=== PATIENT | male | born 1970 | race Caucasian/White ===

== ENCOUNTER 2018-02-25 20:19 | Emergency (ER) | payer BC ==
[2018-02-25] MEDS ORDERED: NA CHLORIDE 0.9% 1,000 ML ONE ×2 (20:50→22:38)
[2018-02-25] MEDS ORDERED: ONDANSETRON 4 MG/2 ML VIAL ONE (20:50)
[2018-02-25 21:21] LABS: Absolute Lymphocytes (CBC) 0.6 K/uL (0.7-4.9); Absolute Monocytes 0.9 K/uL (0.1-1.3); Absolute Neutrophil 11.2 K/uL (1.8-8.0); Basophils % 0.2 % (0-1.3); Hematocrit 45.1 % (39.6-49.0); Lymphocytes % 4.8 % (15.3-44.8); MCH 31.2 pg (27.0-35.0); MCV 89.5 fL (80-100); MPV 9.3 fL (7.6-11.3); Monocytes % 7.2 % (3.3-12.3); RBC Red Blood Cell Count 5.04 M/uL (4.33-5.43)
[2018-02-25 22:03] LABS: Bilirubin Direct 0.2 mg/dL (0-0.2); Bilirubin Total 1.4 mg/dL (0.2-1.0); Potassium 3.9 mmol/L (3.5-5.1); Protein, Total 7.6 g/dL (6.4-8.2)
[2018-02-25] MEDS ORDERED: LORazepam 2 MG/ML VIAL ONE (22:38)
--- NOTE | 2018-02-25 23:33 | ER ---
Nurse's Notes [facility] Name: Augustin Huang Age: 47 yrs Sex: Male : 1970 Arrival Date: 02/25/2018 Time: 20:22 Bed 26 Private MD: Deo Ferrell B Diagnosis: Nausea with vomiting, unspecified;Diarrhea, unspecified Presentation: 02/25 20:32 Presenting complaint: Patient states: Vomiting for 24 hours, unable to tolerate la1 anything by mouth. Transition of care: patient was not received from another setting of care. Onset of symptoms was February 25, 2018. Risk Assessment: Do you want to hurt yourself or someone else? Patient reports no desire to harm self or others. Initial Sepsis Screen: Does the patient meet any 2 criteria? No. Patient's initial sepsis screen is negative. Does the patient have a suspected source of infection? No. Patient's initial sepsis screen is negative. Care prior to arrival: None. 20:32 Method Of Arrival: Ambulatory la1 20:32 Acuity: VENECIA 3 la1 Historical: - Allergies: 20:33 PENICILLINS; la1 - Home Meds: 23:17 losartan Oral [Active]; uric [Active]; mg2 - PMHx: 20:33 Gout; Hypertension; la1 - PSHx: 23:17 None; mg2 - Immunization history:: Adult Immunizations up to date. - Social history:: Smoking status: Patient/guardian denies using tobacco. - Ebola Screening: : No symptoms or risks identified at this time. Screenin:11 Abuse screen: Denies threats or abuse. Denies injuries from another. Nutritional mg2 screening: No deficits noted. Tuberculosis screening: No symptoms or risk factors identified. Fall Risk IV access (20 points). Assessment: 23:10 General: Appears in no apparent distress. uncomfortable, Behavior is calm, cooperative. mg2 Pain: Denies pain. Neuro: Level of Consciousness is awake, alert, obeys commands, Oriented to person, place, time, situation. Cardiovascular: Capillary refill < 3 seconds Patient's skin is warm and dry. Respiratory: Airway is patent Respiratory effort is even, unlabored, Respiratory pattern is regular, symmetrical. GI: Abdomen is flat, non-distended, Reports nausea, vomiting. : No signs and/or symptoms were reported regarding the genitourinary system. EENT: No signs and/or symptoms were reported regarding the EENT system. Derm: Skin is intact, Skin is pink, warm \T\ dry. normal. Musculoskeletal: No signs and/or symptoms reported regarding the musculoskeletal system. Vital Signs: 20:33 BP 118 / 78; Pulse 70; Resp 16; Temp 97.2; Pulse Ox 100% on R/A; Weight 97.52 kg; la1 Height 6 ft. 3 in. (190.50 cm); 22:46 BP 127 / 91; Pulse 79; Resp 18; Pulse Ox 100% on R/A; Pain 0/10; mg2 20:33 Body Mass Index 26.87 (97.52 kg, 190.50 cm) la1 ED Course: 20:22 Patient arrived in ED. ds1 20:23 Deo Ferrell MD is Private Physician. ds1 20:33 Triage completed. la1 20:33 Arm band placed on left wrist. la1 20:36 Dk Miles PA is PHCP. cp 20:36 Jacoby Mace MD is Attending Physician. cp 20:41 PHCP role handed off by Dk Miles PA snw 20:41 Cyndi Quintana FNP-C is PHCP. snw 20:43 Eusebio Casillas RN is Primary Nurse. mg2 20:54 No provider procedures requiring assistance completed. Inserted saline lock: 20 gauge mg2 in right forearm, using aseptic technique. Blood collected. 22:[address] nj 22:31 CT completed. Patient tolerated procedure well. Patient moved back from AR. nj 22:32 CT Stone Protocol In Process Unspecified. EDMS 23:11 Patient has correct armband on for positive identification. Pulse ox on. NIBP on. Door mg2 closed. Warm blanket given. Pillow given. 23:31 Deo Ferrell MD is Referral Physician. snw Administered Medications: 20:53 Drug: NS 0.9% 1000 ml Route: IV; Rate: 1 bolus; Site: right forearm; mg2 23:09 Follow up: Response: No adverse reaction; IV Status: Completed infusion mg2 20:54 Drug: Zofran 4 mg Route: IVP; Site: right forearm; mg2 23:09 Follow up: Response: No adverse reaction mg2 22:46 Drug: NS 0.9% 1000 ml Route: IV; Rate: 1 bolus; Site: right forearm; mg2 23:25 Follow up: Response: No adverse reaction; IV Status: Completed infusion mg2 22:46 Drug: Ativan 1 mg Route: IVP; Site: right forearm; mg2 23:24 Follow up: Response: No adverse reaction; Marked relief of symptoms mg2 23:33 Drug: Phenergan 25 mg Route: IM; Site: right gluteus; mg2 23:33 CANCELLED (Duplicate Order): Promethazine 25 mg IM once mg2 Outcome: 23:32 Discharge ordered by MD. chau 23:57 Patient left the ED. aa1 Signatures: Dispatcher [employer] EDMS aMriama Wang RN RN aa1 Cyndi Quintana, MANAGER WASTEWATER-C MANAGER WASTEWATER-Ayse Bowden ds1 Riaz Bowman RN RN la1 Dk Miles PA PA cp Jordan, Nathan nj Gardose, Michele, RN RN mg2
--- NOTE | 2018-02-25 23:33 | EDPHYS ---
Physician Documentation [facility] Name: Augustin Huang Age: 47 yrs Sex: Male : 1970 Arrival Date: 02/25/2018 Time: 20:22 Bed 26 Private MD: Deo Ferrell B ED Physician Jacoby Mace HPI: 02/25 20:55 This 47 yrs old Male presents to ER via Ambulatory with complaints of snw Vomiting. 20:55 The patient presents to the emergency department with nausea, vomiting, diarrhea. snw Onset: The symptoms/episode began/occurred suddenly, 24 hour(s) ago, and became persistent. Possible causes: unknown. The symptoms are aggravated by nothing. The symptoms are alleviated by nothing. Associated signs and symptoms: Pertinent positives: anorexia, diarrhea, nausea, vomiting. Severity of symptoms: At their worst the symptoms were moderate severe. The patient has not experienced similar symptoms in the past. The patient has not recently seen a physician. hx of hernia repair, no other abd surgeries, denies pain. Historical: - Allergies: 20:33 PENICILLINS; la1 - Home Meds: 23:17 losartan Oral [Active]; uric [Active]; mg2 - PMHx: 20:33 Gout; Hypertension; la1 - PSHx: 23:17 None; mg2 - Immunization history:: Adult Immunizations up to date. - Social history:: Smoking status: Patient/guardian denies using tobacco. - Ebola Screening: : No symptoms or risks identified at this time. ROS: 21:02 Constitutional: Negative for fever, chills, and weight loss, Eyes: Negative for injury, snw pain, redness, and discharge, ENT: Negative for injury, pain, and discharge, Neck: Negative for injury, pain, and swelling, Cardiovascular: Negative for chest pain, palpitations, and edema, Respiratory: Negative for shortness of breath, cough, wheezing, and pleuritic chest pain, Back: Negative for injury and pain, : Negative for injury, bleeding, discharge, and swelling, MS/Extremity: Negative for injury and deformity, Skin: Negative for injury, rash, and discoloration, Neuro: Negative for headache, weakness, numbness, tingling, and seizure. 21:02 Abdomen/GI: Positive for nausea, vomiting, and diarrhea. Exam: 21:02 Constitutional: This is a well developed, well nourished patient who is awake, alert, snw and in no acute distress. Head/Face: Normocephalic, atraumatic. Eyes: Pupils equal round and reactive to light, extra-ocular motions intact. Lids and lashes normal. Conjunctiva and sclera are non-icteric and not injected. Cornea within normal limits. Periorbital areas with no swelling, redness, or edema. ENT: Nares patent. No nasal discharge, no septal abnormalities noted. Tympanic membranes are normal and external auditory canals are clear. Oropharynx with no redness, swelling, or masses, exudates, or evidence of obstruction, uvula midline. Mucous membranes moist. Neck: Trachea midline, no thyromegaly or masses palpated, and no cervical lymphadenopathy. Supple, full range of motion without nuchal rigidity, or vertebral point tenderness. No Meningismus. Chest/axilla: Normal chest wall appearance and motion. Nontender with no deformity. No lesions are appreciated. Cardiovascular: Regular rate and rhythm with a normal S1 and S2. No gallops, murmurs, or rubs. Normal PMI, no JVD. No pulse deficits. Respiratory: Lungs have equal breath sounds bilaterally, clear to auscultation and percussion. No rales, rhonchi or wheezes noted. No increased work of breathing, no retractions or nasal flaring. Back: No spinal tenderness. No costovertebral tenderness. Full range of motion. Skin: Warm, dry with normal turgor. Normal color with no rashes, no lesions, and no evidence of cellulitis. MS/ Extremity: Pulses equal, no cyanosis. Neurovascular intact. Full, normal range of motion. Neuro: Awake and alert, GCS 15, oriented to person, place, time, and situation. Cranial nerves II-XII grossly intact. Motor strength 5/5 in all extremities. Sensory grossly intact. Cerebellar exam normal. Normal gait. Psych: Awake, alert, with orientation to person, place and time. Behavior, mood, and affect are within normal limits. 21:02 Abdomen/GI: Inspection: abdomen appears normal, Bowel sounds: diminished, Palpation: soft, in all quadrants, nontender. Vital Signs: 20:33 BP 118 / 78; Pulse 70; Resp 16; Temp 97.2; Pulse Ox 100% on R/A; Weight 97.52 kg; la1 Height 6 ft. 3 in. (190.50 cm); 22:46 BP 127 / 91; Pulse 79; Resp 18; Pulse Ox 100% on R/A; Pain 0/10; mg2 20:33 Body Mass Index 26.87 (97.52 kg, 190.50 cm) la1 MDM: 20:36 Patient medically screened. cp 22:07 Data reviewed: vital signs, nurses notes. Data interpreted: Pulse oximetry: on room air snw is 100 %. Interpretation: normal. Counseling: I had a detailed discussion with the patient and/or guardian regarding: the historical points, exam findings, and any diagnostic results supporting the discharge/admit diagnosis, lab results, the need for outpatient follow up. Medication response: Zofran partially relieved the patient's nausea. Response to treatment: the patient's symptoms have mildly improved after treatment, and as a result, I will administer IV fluids, additional liter of NS and ativan 1mg iv, hosp out of benadryl and phenergan. 22:23 ED course: pt states his normal creatinine are between 1.8 and 2.1. snw 02/25 20:40 Order name: Basic Metabolic Panel; Complete Time: 22:13 snw 02/25 20:40 Order name: CBC with Diff; Complete Time: 21:35 snw 02/25 20:40 Order name: Hepatic Function; Complete Time: 22:13 snw 02/25 20:40 Order name: Lipase; Complete Time: 22:13 snw 02/25 22:14 Order name: CT Stone Protocol w 02/25 20:40 Order name: IV Saline Lock; Complete Time: 20:54 snw 02/25 20:40 Order name: Labs collected and sent; Complete Time: 20:54 snw Administered Medications: 20:53 Drug: NS 0.9% 1000 ml Route: IV; Rate: 1 bolus; Site: right forearm; mg2 23:09 Follow up: Response: No adverse reaction; IV Status: Completed infusion mg2 20:54 Drug: Zofran 4 mg Route: IVP; Site: right forearm; mg2 23:09 Follow up: Response: No adverse reaction mg2 22:46 Drug: NS 0.9% 1000 ml Route: IV; Rate: 1 bolus; Site: right forearm; mg2 23:25 Follow up: Response: No adverse reaction; IV Status: Completed infusion mg2 22:46 Drug: Ativan 1 mg Route: IVP; Site: right forearm; mg2 23:24 Follow up: Response: No adverse reaction; Marked relief of symptoms mg2 23:33 Drug: Phenergan 25 mg Route: IM; Site: right gluteus; mg2 23:33 CANCELLED (Duplicate Order): Promethazine 25 mg IM once mg2 Disposition: 02/26 01:09 Co-signature as Attending Physician, Jacoby Mace MD. ma2 01:09 Co-signature as Attending Physician, Jacoby Mace MD. ma2 Disposition: 02/25/18 23:32 Discharged to Home. Impression: Nausea with vomiting, unspecified, Diarrhea, unspecified. - Condition is Stable. - Discharge Instructions: Food Choices to Help Relieve Diarrhea, Adult, Diarrhea, Adult, Clear Liquid Diet, Adult, Nausea and Vomiting, Adult, Rehydration, Adult. - Prescriptions for Zofran 4 mg Oral Tablet - take 1 tablet by ORAL route every 6 hours As needed; 20 tablet. promethazine 25 mg Oral Tablet - take 1 tablet by ORAL route every 6 hours As needed; 20 tablet. - Work release form, Medication Reconciliation Form, Thank You Letter, Antibiotic Education, Prescription Opioid Use form. - Follow up: Deo Fererll MD; When: 2 - 3 days; Reason: Recheck today's complaints, Continuance of care, Re-evaluation by your physician. Follow up: Emergency Department; When: As needed; Reason: Worsening of condition. Signatures: Dispatcher [employer] EDMS Mariama Wang RN RN aa1 Cyndi Quintana, ALCON-C ASSURANCE ASSOCIATE-CsnRiaz Doshi RN RN la1 Dk Miles PA PA cp Alzahri, Mohammad, MD MD ma2 Eusebio Casillas RN RN mg2 Corrections: (The following items were deleted from the chart) 02/25 23:33 23:32 Promethazine 25 mg IM once ordered. mg2 mg2 23:57 23:32 02/25/2018 23:32 Discharged to Home. Impression: Nausea with vomiting, aa1 unspecified; Diarrhea, unspecified. Condition is Stable. Forms are Medication Reconciliation Form, Thank You Letter, Antibiotic Education, Prescription Opioid Use. Follow up: Deo Ferrell; When: 2 - 3 days; Reason: Recheck today's complaints, Continuance of care, Re-evaluation by your physician. Follow up: Emergency Department; When: As needed; Reason: Worsening of condition. snw
[2018-02-25] MEDS ORDERED: PROMETHAZINE HCL 50 MG/ML AMP IM ONE (23:35)
[2018-02-26 01:07] VITALS: TEMP 97.2; O2SAT 100
[2018-02-26 01:09] VITALS: BP 127/91
--- NOTE | 2018-02-26 08:15 | RAD REPORT ---
EXAM DESCRIPTION: CT - Stone Protocol - 02/26/2018 6:49 am CLINICAL HISTORY: Flank pain. renal insuff;Abd pain COMPARISON: No comparisons TECHNIQUE: Axial images were obtained without oral or IV contrast. Lack of contrast limits solid org an and vascular assessment. The kklty-[id number] spans the entirety of the system partially obscuring uppermost abdomen and lung bases. Coronal reformatted images were obtained and reviewed. All CT scans are performed using dose optimization technique as appropriate and may include automated exposure control or mA/KV adjustment according to patient size. FINDINGS: The lower lung drew are clear. Small hiatal hernia. Imaged portions of the liver and spleen show no suspicious findings on non-contrast imaging. The panc reas and adrenal glands are normal. No pathologic lymphadenopathy in the abdomen or pelvis. No urinary tract stones or obstructive uropathy. No bowel obstruction, free air, free fluid or abscess. Normal appendix noted. No significant bony abnormality. Surgical clips are present in both inguinal regions. A small right i nguinal hernia suspected. IMPRESSION: No urinary tract stones or obstructive uropathy.
== END 2018-02-25 23:57 | disposition home or self-care (01) ==
LOC: ER 20:19
DX: R19.7 Diarrhea, unspecified (principal); I10 Essential (primary) hypertension; Z88.0 Allergy status to penicillin
CPT/HCPCS: 36415; 74176; 76377; 80048; 80076; 83690; 85025; 96361; 96372; 96374; 96375; 99284; J2405; J2550; J7030

== ENCOUNTER 2019-11-25 06:56 | Emergency (ER) | payer BC ==
[2019-11-25] MEDS ORDERED: EPINEPHrine 1 MG/10 ML SYR IV ONE (06:57)
[2019-11-25] MEDS ORDERED: Caclcium Chloride 10% INJ SYR IV ONE (06:57)
--- NOTE | 2019-11-25 10:43 | EDPHYS ---
Physician Documentation [facility] Name: Augustin Huang Age: 48 yrs Sex: Male : 1970 Arrival Date: 11/25/2019 Time: 07:08 Bed 3 Private MD: ED Physician Dk Colindres HPI: 11/24 07:20 This 48 yrs old Male presents to ER via EMS with complaints of CPR. jr8 07:20 Preceding the arrest, the patient collapsed. The arrest occurred Gym. Pre-hospital jr8 course: The arrest was witnessed by bystander. Bystanders at the scene performed CPR. EMS care prior to arrival: initiation of ACLS, peripheral IV, was successfully placed. intubation was successfully performed, oxygen, by BVM to assist ventilations. 100% by ET tube. EMS call time was 06:03. ACLS details: Initial rhythm was V-fib. The presenting rhythm is asystole. Airway: oral intubation, Medications given by EMS prior to arrival - Epinephrine IV x 4 doses, Amiodarone 300 mg IV push given, Defibrillated X 1, Response to therapy: continued arrest. The patient has not experienced similar symptoms in the past. The patient has not recently seen a physician. Family stated that they had just talked to him not that long ago. Went to gym to work out. EMS stated that bystander saw him collapse on treadmill. CPR started at that time. History of HTN but no other medical problems as far as they new . Historical: - Allergies: 07:37 PENICILLINS; lp1 - PMHx: 07:37 Gout; Hypertension; lp1 ROS: 07:20 Unable to obtain ROS due to obtunded state. jr8 Exam: 07:20 Eyes: Periorbital structures: appear normal, Pupils: right pupil is approximately 3 jr8 mm(s), left pupil is approximately 3 mm(s), fixed, Conjunctiva: normal, Sclera: no appreciated abnormality, Lids and lashes: appear normal. 07:20 Cardiovascular: Rhythm: asystole, Pulses: not palpable, Edema: is not appreciated. 07:20 Respiratory: Breath sounds: are clear throughout, Ventilated with BVM at rate of 12bpm . 07:20 Abdomen/GI: Inspection: abdomen appears normal, distension, is not seen, Palpation: soft, in all quadrants. 07:20 Skin: Appearance: Color: dusky, Temperature: cool, Moisture: damp. Vital Signs: 07:23 Weight 72.57 kg; lp1 Melchor Coma Score: 07:20 Eye Response: none(1). Verbal Response: none(1). Motor Response: none(1). Modifying jr8 Factors: Intubated. Total: 3. Procedures: 07:20 CPR: Initial patient assessment: unresponsive, cyanotic, pale, intubated, Ambu jr8 ventilation, pulses absent w/ compressions, The presenting cardiac rhythm is asystole. respirations assisted with BVM, the patient was intubated prior to arrival, ventilations per thumper, Compressions: began prior to arrival. Meds given: See Meds list. despite ED evaluation and treatment, the patient . Family notified. CPR was stopped at 07:08. Central Line: the site was prepped with Betadine, in sterile fashion, a triple lumen catheter was inserted, in the right femoral vein, in 1 attempts. placement was verified, by blood return, the site was dressed with 4X4s, Tegaderm, foam tape, using sterile technique. MDM: 07:11 Patient medically screened. jr8 07:20 Data reviewed: vital signs, nurses notes. ED course: Patient was worked for one hour jr8 prior to being pronounced . All ACLS measures and attempts to regain pulse were given. Family at hospital and was notified of outcome. Loft Worker Head has been called and awaiting arrival for disposition. Administered Medications: 06:57 Drug: EPINEPHrine 0.1mg/mL 1:10,000 0.01 mg/kg {Note: IO R tib.} Route: IVP; Site: lp1 Other; 07:10 Follow up: Response: No adverse reaction em 07:00 Drug: Calcium Chloride 1 grams Route: IVP; Site: left forearm; lp1 07:10 Follow up: Response: No adverse reaction em 07:01 Drug: EPINEPHrine 0.1mg/mL 1:10,000 0.01 mg/kg {Note: IO R tib.} Route: IVP; Site: lp1 Other; 07:10 Follow up: Response: No adverse reaction em 07:05 Drug: EPINEPHrine 0.1mg/mL 1:10,000 0.01 mg/kg Route: IVP; Site: left antecubital; lp1 07:10 Follow up: Response: No adverse reaction em Disposition: 09:24 Critical Care:. jr8 11:15 Co-signature as Attending Physician, Dk Colindres MD I agree with the assessment and som plan of care. Disposition: Patient pronounced on 11/25/19 07:08 by Neo Ruano. Impression: Cardiac arrest, cause unspecified. - Released to Urban Anthropologist. Critical care time excluding procedures: 09:24 Critical care time: Bedside Care: 20 minutes, Family Intervention: 10 minutes. Total jr8 time: 30 minutes Signatures: Dk Colindres MD MD cha Munoz, Edgar, RN RN Krystal Romero RN RN lp1 Neo Ruano, PA PA jr8 Corrections: (The following items were deleted from the chart) 10:39 07:31 11/25/2019 07:31 Patient pronounced on 11/25/2019 at 07:08 by Neo Ruano. em Impression: Cardiac arrest, cause unspecified. Released to Urban Anthropologist. jr8
--- NOTE | 2019-11-25 10:43 | ER ---
Nurse's Notes [facility] Name: Augustin Huang Age: 48 yrs Sex: Male : 1970 Arrival Date: 11/25/2019 Time: 07:08 Bed 3 Private MD: Diagnosis: Cardiac arrest, cause unspecified Presentation: 11/24 06:54 Chief complaint: EMS states: Called for witnessed arrest at [employer] while lp1 patient was on treadmill; Bystander began CPR, AED shock x3; On EMS arrival, patient in V-fib, shocked x1, asystole for the next 20-25 min; Intubated 7.0 ETT, 23 at the teeth; X4 Epi administered, 300 mg Amiodarone, Bicarb 100 mEq to IO to R tibia; CPR on arrival to ED. 06:54 Method Of Arrival: EMS: [facility] lp1 06:54 Care prior to arrival: Oral intubation, CPR and is still in progress Glucose check: lp1 105. Compressions began prior to arrival. 06:54 Acuity: VENECIA 1 lp1 07:20 Coronavirus screen: Proceed with normal triage. Ebola Screen: No symptoms or risks lp1 identified at this time. Risk Assessment: Do you want to hurt yourself or someone else? Unable to obtain. Note Tone time of 0602; EMS arrival at 0609 to scene. Onset of symptoms was November 25, 2019 at 06:02. Historical: - Allergies: 07:37 PENICILLINS; lp1 - PMHx: 07:37 Gout; Hypertension; lp1 Assessment: 06:54 General: Behavior is unresponsive. Code Team at the bedside (Refugio Moya RN, jb4 Adolph RN, Madie RN, Krystal RN, Tabitha RN, Brayan MOODY Tech, Simba RT, Neo PA, Lillian LEWIS student). Neuro: Level of Consciousness is unresponsive. Cardiovascular: Rhythm is asystole. Respiratory: Airway via oral intubation. Derm: Skin is intact, Skin is dry, Skin is dusky, pale, Skin temperature is cool. 06:59 Cardiac rhythm is asystole. lp1 07:03 Cardiac rhythm is asystole. lp1 07:06 Cardiac rhythm is asystole. lp1 Vital Signs: 07:23 Weight 72.57 kg; lp1 Cushing Coma Score: 07:20 Eye Response: none(1). Verbal Response: none(1). Motor Response: none(1). Modifying jr8 Factors: Intubated. Total: 3. ED Course: 06:55 threat monitoring analyst on. Pulse ox on. NIBP on. lp1 06:55 Intubation: EMS placement checked by RANDY Manzanares; 7.0 ETT, 23 at the teeth . lp1 06:55 Maintain EMS IV. Dressing intact. Site clean \T\ dry. IO to R tibia. lp1 06:58 Inserted saline lock: 18 gauge in left forearm, using aseptic technique. By jim Tavera RN. 07:02 Inserted saline lock: 18 gauge in left antecubital area, using aseptic technique. By jim tavera RN. 07:02 Inserted saline lock: 18 gauge in left EJ, using aseptic technique. lp1 07:05 Assisted provider with central line placement. Set up central line tray. Triple lumen lp1 line placed in right femoral. Line placed by Dk Colindres MD Placement verified by blood return. 07:08 Patient arrived in ED. lp1 07:11 Neo Ruano PA is PHCP. jr8 07:11 Flip Williamson MD is Attending Physician. jr8 07:20 Triage completed. lp1 07:29 notified lj pd to have hygiene teacher come to er. bd 07:31 Neo Ruano PA is Pronouncing Provider. jr8 07:34 Drew Muir RN is Primary Nurse. jb4 07:43 Attending Physician role handed off by Flip Williamson MD som 07:43 Dk Colindres MD is Attending Physician. som Administered Medications: 06:57 Drug: EPINEPHrine 0.1mg/mL 1:10,000 0.01 mg/kg {Note: IO R tib.} Route: IVP; Site: lp1 Other; 07:10 Follow up: Response: No adverse reaction em 07:00 Drug: Calcium Chloride 1 grams Route: IVP; Site: left forearm; lp1 07:10 Follow up: Response: No adverse reaction em 07:01 Drug: EPINEPHrine 0.1mg/mL 1:10,000 0.01 mg/kg {Note: IO R tib.} Route: IVP; Site: lp1 Other; 07:10 Follow up: Response: No adverse reaction em 07:05 Drug: EPINEPHrine 0.1mg/mL 1:10,000 0.01 mg/kg Route: IVP; Site: left antecubital; lp1 07:10 Follow up: Response: No adverse reaction em Outcome: 07:08 Outcome Patient lp1 07:08 Patient : Time of 07:08 Pronounced by Neo PADILLA lp1 07:08 Condition: 10:38 Patient : Body to home, Body released to [place] em 10:39 Patient left the ED. em Signatures: Halima Franco Corey, MD MD cha Munoz, Edgar, RN RN em Krystal Phillips RN RN lp1 Roszak, Josh, PA PA jr8 Drew Muir RN RN jb4 Corrections: (The following items were deleted from the chart) 07:47 06:54 General: Behavior is unresponsive. jb4 jb4
== END 2019-11-25 10:39 ==
LOC: ER 06:56
PROC: 06HM33Z Insertion of Infusion Device into Right Femoral Vein, Percutaneous Approach (ICD-10-PCS; principal; 2019-11-25)
DX: I46.9 Cardiac arrest, cause unspecified (principal); I10 Essential (primary) hypertension; Z88.0 Allergy status to penicillin
CPT/HCPCS: 82947; 31500; 92950; 99285; 36556; J0171